=== PATIENT | female | born 1955 ===

== ENCOUNTER 2017-04-26 10:40 | Emergency (ER) | payer OTHER ==
[2017-04-26 11:03] VITALS: BP 154/83; PULSE 62; RESP 20; TEMP 97; O2SAT 100
--- NOTE | 2017-04-26 11:50 | ED PDOC ---
HPI: General Adult Time Seen by Provider: 04/26/17 11:29 Chief Complaint (Provider): Blurry vision History Per: Patient History/Exam Limitations: no limitations Onset/Duration Of Symptoms: Days (Mar 2017) Current Symptoms Are (Timing): Still Present Recently: Treated By A Physician Additional Complaint(s): Jaki Christian is a 61 year old female, with no past medical history, who presents to the emergency department complaining of blurry vision, and right eye sees floaters onset since Mar 2017, at which time she sustained a head injury while in [facility] [place]. Patient was seen opthamologists in [facility] and was told she had "floaters" and was treated with intravetrial steroid injection. Patient denies any new symptoms but states she has persistent floaters with a right sided headache. She denies any other medical complaints. PMD: Corwin Chen V Past Medical History Reviewed: Historical Data, Nursing Documentation, Vital Signs Vital Signs: Last Vital Signs Temp 97.0 F L 04/26/17 11:03 Pulse 62 04/26/17 11:03 Resp 20 04/26/17 11:03 BP 154/83 H 04/26/17 11:03 Pulse Ox 100 04/26/17 12:02 - Medical History PMH: No Chronic Diseases - Surgical History Surgical History: No Surg Hx - Family History Family History: States: Unknown Family Hx - Allergies Allergies/Adverse Reactions: Allergies Allergy/AdvReac Type Severity Reaction Status Date / Time No Known Allergies Allergy Verified 04/26/17 11:55 Review of Systems ROS Statement: Except As Marked, All Systems Reviewed And Found Negative Eyes: Positive for: Vision Change (blurry vision), Other (right eye sees "floaters" ) Neurological: Positive for: Headache (right side) Physical Exam - Reviewed Nursing Documentation Reviewed: Yes Vital Signs Reviewed: Yes - Physical Exam Appears: Positive for: Non-toxic Head Exam: Positive for: ATRAUMATIC, NORMAL INSPECTION, NORMOCEPHALIC Skin: Positive for: Normal Color, Warm, Dry Eye Exam: Positive for: EOMI, PERRL, Other (unable to visualize fungi bilateral) Neck: Positive for: Painless ROM, Supple Extremity: Positive for: Normal ROM. Negative for: Deformity, Swelling Neurologic/Psych: Positive for: Alert, Oriented (x3). Negative for: Other (No focal deficits) - ECG O2 Sat by Pulse Oximetry: 100 (RA) Pulse Ox Interpretation: Normal Medical Decision Making Medical Decision Making: Initial Plan: --Head w/o contrast [CT] --reevaluation Scribe Attestation: Documented by Bret Sams, acting as a scribe for Darryl Lawton MD Provider Scribe Attestation: All medical record entries made by the Scribe were at my direction and personally dictated by me. I have reviewed the chart and agree that the record accurately reflects my personal performance of the history, physical exam, medical decision making, and the department course for this patient. I have also personally directed, reviewed, and agree with the discharge instructions and disposition. Disposition - Clinical Impression Clinical Impression: Headache, Head injury - Patient ED Disposition Is Patient to be Admitted: No Counseled Patient/Family Regarding: Studies Performed, Diagnosis, Need For Followup - Disposition Referrals: Corwin Chen MD [Primary Care Provider] - Mich Quinonez MD [Staff Provider] - Disposition: Routine/Home Disposition Time: 13:25 Condition: FAIR Instructions: Head Injury (ED) Print Language: TAJIK
--- NOTE | 2017-04-26 13:00 | CT ---
PROCEDURE: CT HEAD WITHOUT CONTRAST. HISTORY: r/o bleed COMPARISON: None available. TECHNIQUE: Axial computed tomography images were obtained through the head/brain without intravenous contrast. Radiation dose: Total exam DLP = 884.2 mGy-cm. This CT exam was performed using one or more of the following dose reduction techniques: Automated exposure control, adjustment of the mA and/or kV according to patient size, and/or use of iterative reconstruction technique. FINDINGS: HEMORRHAGE: No intracranial hemorrhage. BRAIN: No mass effect or edema. No atrophy or chronic microvascular ischemic changes. VENTRICLES: Unremarkable. No hydrocephalus. CALVARIUM: Unremarkable. PARANASAL SINUSES: Unremarkable as visualized. No significant inflammatory changes. MASTOID AIR CELLS: Unremarkable as visualized. No inflammatory changes. OTHER FINDINGS: Intracranial arterial calcifications. IMPRESSION: No acute intracranial pathology.
== END 2017-04-26 13:41 | disposition home or self-care (01) ==
LOC: SUPCPDRO 10:40 → H.ER 10:40
DX: S09.90XA Unspecified injury of head, initial encounter (principal); Y92.89 Other specified places as the place of occurrence of the external cause; H43.391 Other vitreous opacities, right eye